=== PATIENT | male | born 1970 | race Caucasian/White ===

== ENCOUNTER → 2024-02-04 | Outpatient (CLI) | payer BC, OTHER ==
[2024-02-04 06:44] LABS: HEMOGLOBIN A1c 5.5 % (4.0-6.0)
[2024-02-04 06:57] LABS: PSA SCREENING 1.33 NG/ML (< 4.00)
[2024-02-04 06:59] LABS: ALBUMIN 4.1 G/DL (3.2-5.2); ALKALINE PHOSPHATASE 50 U/L (46-116); ALT/SGPT 17 U/L (7.0-40); AST/SGOT < 8 U/L (<34); BILIRUBIN,TOTAL 0.5 MG/DL (0.3-1.2); BLOOD UREA NITROGEN 20 MG/DL (9-23); CARBON DIOXIDE LEVEL 30 MMOL/L (20-31); CHLORIDE LEVEL 107 MMOL/L (98-107); CHOLESTEROL LEVEL 177 MG/DL (<200); CHOLESTEROL RISK RATIO 4.29 (<5); CREATININE FOR GFR 1.14 MG/DL (0.70-1.30); GLOMERULAR FILTRATION RATE > 60.0 (>56); GLUCOSE, FASTING 109 MG/DL (60-100); HDL CHOLESTEROL 41.2 MG/DL (>40); LDL CHOLESTEROL 105.8 MG/DL (<100); NON-HDL-C 135.8 MG/DL; POTASSIUM SERUM 4.1 MMOL/L (3.5-5.1); SODIUM LEVEL 141 MMOL/L (136-145); TOTAL PROTEIN 6.8 G/DL (5.7-8.2); TRIGLYCERIDES LEVEL 150 MG/DL (<150)
[2024-02-04 07:29] LABS: MAU/CREAT RATIO 0.8 MCG/MG (0.0-30.0)
== END ==
LOC: M LAB 06:05
PROVIDERS: ATTEND Internal Medicine
DX: Z12.5 Encounter for screening for malignant neoplasm of prostate (principal); I10 Essential (primary) hypertension; E11.9 Type 2 diabetes mellitus without complications; E78.00 Pure hypercholesterolemia, unspecified
CPT/HCPCS: 36415; 80053; 80061; 82043; 83036; G0103

== ENCOUNTER → 2025-04-17 | Outpatient (REF) | payer BC ==
[2025-04-17 12:38] LABS: IRON (FE) 173.0 UG/DL (65-175); PERCENT SATURATION 56.5 % (19.7-50.0)
== END ==
LOC: M LAB REF 11:44
PROVIDERS: ATTEND Internal Medicine
DX: G25.81 Restless legs syndrome (principal)